=== PATIENT | female | born 1955 | race African-American/Black ===

== ENCOUNTER 2024-02-14 07:01 | Inpatient (IN) | payer MEDICARE ==
[2024-02-14] MEDS ORDERED: Pantoprazole 40 MG VIAL ONE (07:23)
[2024-02-14 07:35] LABS: #Basophils Less than 0.03 10x3/uL (0.0-0.2); %Basophils 0.1 % (0.0-1.0); %Eosinophils 0.7 % (0.0-10.0); %Lymphocytes 35.3 % (21.0-51.0); %Monocytes 7.2 % (0.0-10.0); %Neutrophils 56.3 % (42.0-75.0); Hematocrit 28.6 % (36.0-47.0); Hemoglobin 8.5 g/dL (12.0-16.0); Mean Corpuscular HGB CONC 29.7 g/dL (32.0-36.0); Mean Corpuscular Hemoglobin 28.4 pg (27.0-31.0); Mean Corpuscular Volume 95.7 fL (78.0-98.0); Mean Platelet Volume 9.1 fL (7.4-10.4); Platelet Count 302 10x3/uL (130-400); RBC Distribution Width 15.3 % (11.5-14.5); Red Blood Cell (RBC) Count 2.99 mill/uL (4.20-5.40)
[2024-02-14 07:57] LABS: INR-International Normal Ratio 1.2; PTT 28.8 sec (22.9-36.1)
[2024-02-14 07:58] LABS: ALT (SGPT) 5 U/L (8-55); AST (SGOT) 19 U/L (5-34); Albumin 2.2 g/dL (3.4-4.8); Alkaline Phosphatase 120 U/L (40-110); Anion Gap 14 mmol/L (10-20); BUN (Urea Nitrogen) 9 mg/dL (9.8-20.1); Bilirubin, Total 0.4 mg/dL (0.2-1.2); Calc. Creatinine Clearance 0 mL/min (70-130); Calcium 8.9 mg/dL (7.8-10.44); Carbon Dioxide 18 mmol/L (23-31); Chloride 107 mmol/L (98-107); Estimated GFR 51; Globulin 4.2 g/dL (2.4-3.5); Glucose 189 mg/dL (80-115); Potassium 2.9 mmol/L (3.5-5.1); Protein, Total 6.4 g/dL (5.8-8.1); Sodium 136 mmol/L (136-145)
[2024-02-14] MEDS ORDERED: Potassium Chloride 20 MEQ (100 mL) BAG ONE (08:09)
[2024-02-14] MEDS ORDERED: NS 0.9% w/ 20 MEQ KCL 0 ML ONE (08:15)
[2024-02-14] MEDS ORDERED: Senokot S 8.6-50 MG TAB PO PRN (09:09)
[2024-02-14] MEDS ORDERED: Guaifenesin DM 100-10/5 ML UDCUP PO PRN (09:09)
[2024-02-14] MEDS ORDERED: Iopamidol-370 76% 500 ML MDV (1 ML CHARGE) ONE (09:12)
[2024-02-14 11:04] LABS: Lactic Acid 2.16 mmol/L (0.5-2.2)
[2024-02-14] MEDS ORDERED: SUCCINYLCHOLINE/SOD CL,ISO/PF 200 MG/10 ML SYRINGE FS ONE (11:16)
[2024-02-14] MEDS ORDERED: PROPOFOL 200 MG/20 ML VIAL ONE (11:16)
[2024-02-14] MEDS ORDERED: Ondansetron PF 4 MG/2 ML Vial ONE (11:16)
[2024-02-14] MEDS ORDERED: Dexamethasone 20 MG/5 ML VIAL ONE (11:16)
[2024-02-14] MEDS ORDERED: Promethazine HCl 25 MG/ML VIAL ONE (12:27)
[2024-02-14] MEDS ORDERED: Non-Formulary Medication 1 EACH PO PRN (12:47)
[2024-02-14] MEDS ORDERED: Ondansetron HCl/PF 4 MG/2 ML Vial IVP PRN (13:00)
[2024-02-14] MEDS ORDERED: Promethazine HCl 25 MG/ML VIAL IM PRN (13:00)
[2024-02-14] MEDS: Pantoprazole 80 MG, Admixture Fee 1 EACH in Sodium Chloride 0.9% 100 ML IVPB SCH ×2 (13:50→13:51)
[2024-02-14] MEDS ORDERED: Electrolyte Replacement Protocol FS PRN (14:30)
[2024-02-14] MEDS: Octreotide Acetate 1,250 MCG in Sodium Chloride 0.9% 250 ML 250 ML IVPB SCH (14:33)
[2024-02-14] MEDS: Potassium Chloride 20 MEQ in Premix 1 BAG IVPB SCH (15:30)
[2024-02-14] MEDS: Sodium Chloride 0.9% 1,000 ML IV SCH (17:18)
[2024-02-14] MEDS: Electrolyte Replacement Protocol 1 EACH FS ONE (18:07)
[2024-02-14] MEDS: Pantoprazole 40 MG VIAL IVP SCH (21:19)
[2024-02-15 02:07] LABS: #Basophils Less than 0.03 10x3/uL (0.0-0.2); #Eosinophils Less than 0.03 10x3/uL (0.0-0.7); %Basophils 0.2 % (0.0-1.0); %Lymphocytes 9.7 % (21.0-51.0); %Monocytes 2.1 % (0.0-10.0); %Neutrophils 87.7 % (42.0-75.0); Hematocrit 27.9 % (36.0-47.0); Hemoglobin 8.4 g/dL (12.0-16.0); Mean Corpuscular HGB CONC 30.1 g/dL (32.0-36.0); Mean Corpuscular Hemoglobin 28.4 pg (27.0-31.0); Mean Corpuscular Volume 94.3 fL (78.0-98.0); Mean Platelet Volume 9.2 fL (7.4-10.4); Platelet Count 241 10x3/uL (130-400); RBC Distribution Width 15.3 % (11.5-14.5); Red Blood Cell (RBC) Count 2.96 mill/uL (4.20-5.40)
[2024-02-15 02:31] LABS: Potassium 6.4 mmol/L (3.5-5.1)
[2024-02-15 03:14] LABS: ALT (SGPT) 5 U/L (8-55); AST (SGOT) 14 U/L (5-34); Albumin 2.1 g/dL (3.4-4.8); Alkaline Phosphatase 112 U/L (40-110); Anion Gap 14 mmol/L (10-20); BUN (Urea Nitrogen) 11 mg/dL (9.8-20.1); Bilirubin, Total 0.3 mg/dL (0.2-1.2); Calc. Creatinine Clearance 67 mL/min (70-130); Calcium 8.4 mg/dL (7.8-10.44); Carbon Dioxide 14 mmol/L (23-31); Chloride 117 mmol/L (98-107); Estimated GFR 55; Globulin 4.2 g/dL (2.4-3.5); Glucose 170 mg/dL (80-115); Potassium 6.4 mmol/L (3.5-5.1); Protein, Total 6.3 g/dL (5.8-8.1); Sodium 139 mmol/L (136-145)
[2024-02-15] MEDS: Sodium Bicarb 50 MEQ/50 ML Abboject 8.4% SYRINGE IVP SCH (03:33)
[2024-02-15] MEDS: Insulin Regular, Human 100 UNIT/ML 10 ML VIAL IVP SCH (03:33)
[2024-02-15] MEDS: Dextrose 50% Abboject 50 ML SYRINGE SLOW IVP PRN (03:33)
[2024-02-15 05:40] LABS: Potassium 5.4 mmol/L (3.5-5.1)
[2024-02-15] MEDS: cefTRIAXone\\ROCEPHIN 1 GM in Sodium Chloride 0.9% 100 ML IVPB SCH (09:18)
[2024-02-15 09:56] LABS: Potassium 5.5 mmol/L (3.5-5.1)
[2024-02-15] MEDS: LOKELMA 10 GM PACKET PO SCH ×2 (11:30→17:50)
[2024-02-15] MEDS ORDERED: fentaNYL 50 mcg/mL 1 mL Vial ONE (12:06)
[2024-02-15] MEDS ORDERED: GLYCOPYRROLATE/PF 0.2 MG/ML VIAL ONE (12:06)
[2024-02-15] MEDS ORDERED: PHENYLEPHRINE-NS 100 MCG/ML 10 ML SYRINGE ONE (12:06)
[2024-02-15 12:30] VITALS: BMI 33.7
[2024-02-15] MEDS ORDERED: Lidocaine 1% PF 5 ML VIAL ONE (12:30)
[2024-02-15] MEDS ORDERED: Labetalol HCl 100 MG/20 ML VIAL ONE (12:36)
[2024-02-15] MEDS: Sodium Chloride 0.45% 1,000 ML IV SCH (15:00)
[2024-02-16 05:02] LABS: Hematocrit 22.5 % (36.0-47.0); Hemoglobin 6.6 g/dL (12.0-16.0)
[2024-02-16 05:44] LABS: Anion Gap 12 mmol/L (10-20); BUN (Urea Nitrogen) 10 mg/dL (9.8-20.1); Calc. Creatinine Clearance 78 mL/min (70-130); Calcium 8.1 mg/dL (7.8-10.44); Carbon Dioxide 18 mmol/L (23-31); Chloride 114 mmol/L (98-107); Estimated GFR 63; Glucose 125 mg/dL (80-115); Potassium 4.4 mmol/L (3.5-5.1); Sodium 140 mmol/L (136-145)
[2024-02-16 08:41] LABS: Hematocrit 23.9 % (36.0-47.0); Hemoglobin 7.1 g/dL (12.0-16.0)
[2024-02-16] MEDS: Pantoprazole DR 40 MG TAB PO SCH (09:29)
[2024-02-16 13:31] LABS: Hematocrit 26.8 % (36.0-47.0); Hemoglobin 8.2 g/dL (12.0-16.0); Platelet Count 200 10x3/uL (130-400)
[2024-02-16 20:20] LABS: Hemoglobin 8.7 g/dL (12.0-16.0); Platelet Count 238 10x3/uL (130-400)
[2024-02-17 05:49] LABS: Hematocrit 26.8 % (36.0-47.0); Hemoglobin 8.6 g/dL (12.0-16.0); Platelet Count 202 10x3/uL (130-400)
[2024-02-17 14:39] LABS: Hematocrit 28.2 % (36.0-47.0)
[2024-02-17] MEDS ORDERED: Iopamidol-370 76% 500 ML MDV (1 ML CHARGE) ONE (15:46)
[2024-02-17 15:51] LABS: ALT (SGPT) 7 U/L (8-55); AST (SGOT) 20 U/L (5-34); Albumin 2.2 g/dL (3.4-4.8); Alkaline Phosphatase 108 U/L (40-110); Anion Gap 13 mmol/L (10-20); BUN (Urea Nitrogen) 10 mg/dL (9.8-20.1); Bilirubin, Total 0.4 mg/dL (0.2-1.2); Calc. Creatinine Clearance 90 mL/min (70-130); Calcium 8.7 mg/dL (7.8-10.44); Carbon Dioxide 24 mmol/L (23-31); Chloride 107 mmol/L (98-107); Estimated GFR 73; Glucose 109 mg/dL (80-115); Magnesium 1.5 mg/dL (1.6-2.6); Potassium 3.2 mmol/L (3.5-5.1); Protein, Total 6.2 g/dL (5.8-8.1); Sodium 141 mmol/L (136-145)
[2024-02-17] MEDS: Carvedilol 25 MG TAB PO SCH (18:13)
[2024-02-17] MEDS: Acetaminophen 325 MG TAB PO PRN (18:13)
[2024-02-17] MEDS: Magnesium Sulfate In Water 4 GM in Premix 1 BAG IVPB SCH (18:13)
[2024-02-17] MEDS: Potassium Chloride 20 MEQ TAB PO SCH (18:13)
[2024-02-17] MEDS: Ondansetron PF 4 MG/2 ML Vial IVP PRN (18:19)
[2024-02-17 19:51] LABS: #Basophils Less than 0.03 10x3/uL (0.0-0.2); #Eosinophils Less than 0.03 10x3/uL (0.0-0.7); %Basophils 0.1 % (0.0-1.0); %Lymphocytes 8.1 % (21.0-51.0); %Monocytes 4.9 % (0.0-10.0); %Neutrophils 86.6 % (42.0-75.0); Hematocrit 27.2 % (36.0-47.0); Hemoglobin 8.7 g/dL (12.0-16.0); Mean Corpuscular Hemoglobin 28.6 pg (27.0-31.0); Mean Corpuscular Volume 89.5 fL (78.0-98.0); Mean Platelet Volume 9.3 fL (7.4-10.4); Platelet Count 206 10x3/uL (130-400); Red Blood Cell (RBC) Count 3.04 mill/uL (4.20-5.40)
[2024-02-17] MEDS: metroNIDAZOLE 500 MG in Premix 1 BAG IVPB SCH (20:44)
[2024-02-17 20:52] LABS: Bacteria/HPF None Seen HPF (None Seen); Bilirubin Negative (Negative); Blood, Urine Negative (Negative); CAUTI Indications for Culture Fever or rigors; Clarity Clear (Clear); Glucose, Urine (Dipstick) Normal (Negative); Ketone, Urine Negative (Negative); Leukocyte Negative Leu/uL (Negative); Nitrite Negative (Negative); Protein, Urine (Dipstick) Negative (Neg-Trace); RBC/HPF 0-3 HPF (0-3); Specific Gravity, Urine 1.004 (1.002-1.036); Squamous Epithelial 0-3 HPF (0-3); Urobilinogen Normal mg/dL (Less than 2); WBC/HPF 0-3 HPF (0-3)
[2024-02-17 20:54] LABS: Urine Culture Reflex No No
[2024-02-17] MEDS ORDERED: Carvedilol 25 MG TAB PO SCH (21:00)
[2024-02-17] MEDS ORDERED: hydrALAZINE 25 MG TAB PO SCH (21:00)
[2024-02-17] MEDS: Acetaminophen 325 MG TAB PO SCH (21:23)
[2024-02-17] MEDS: Cefepime 1 GM in Sodium Chloride 0.9% 100 ML IVPB SCH (22:44)
[2024-02-17] MEDS: Vancomycin (BATCH) 2 GM in Premix 1 BAG IVPB SCH (23:41)
[2024-02-18 05:23] LABS: #Basophils Less than 0.03 10x3/uL (0.0-0.2); #Eosinophils Less than 0.03 10x3/uL (0.0-0.7); %Basophils 0.1 % (0.0-1.0); %Eosinophils 0.1 % (0.0-10.0); %Lymphocytes 9.3 % (21.0-51.0); %Monocytes 5.2 % (0.0-10.0); %Neutrophils 84.7 % (42.0-75.0); Hematocrit 27.7 % (36.0-47.0); Hemoglobin 8.7 g/dL (12.0-16.0); Mean Corpuscular HGB CONC 31.4 g/dL (32.0-36.0); Mean Corpuscular Volume 92.3 fL (78.0-98.0); Mean Platelet Volume 9.4 fL (7.4-10.4); Platelet Count 190 10x3/uL (130-400); RBC Distribution Width 16.1 % (11.5-14.5)
[2024-02-18 05:36] LABS: Anion Gap 12 mmol/L (10-20); BUN (Urea Nitrogen) 10 mg/dL (9.8-20.1); Calc. Creatinine Clearance 89 mL/min (70-130); Calcium 8.3 mg/dL (7.8-10.44); Carbon Dioxide 21 mmol/L (23-31); Chloride 107 mmol/L (98-107); Estimated GFR 72; Glucose 105 mg/dL (80-115); Magnesium 2.5 mg/dL (1.6-2.6); Potassium 3.2 mmol/L (3.5-5.1); Sodium 137 mmol/L (136-145)
[2024-02-18] MEDS: Rosuvastatin 20 MG TAB PO SCH (08:55)
[2024-02-18] MEDS: Cefepime 1 GM in Sodium Chloride 0.9% 100 ML IVPB SCH (08:56)
[2024-02-18] MEDS: Vancomycin HCl 750 MG in Sodium Chloride 0.9% 250 ML 250 ML IVPB SCH (08:56)
[2024-02-18] MEDS: Potassium Chloride 20 MEQ TAB PO SCH (08:57)
[2024-02-18] MEDS ORDERED: Non-Formulary Item 1 EACH (Losartan/Hydrochlorothiazide [Losartan-Hctz 100-25 Mg Tab] 1 E PO SCH (09:00)
[2024-02-18] MEDS ORDERED: Losartan 25 MG TAB PO SCH (09:00)
[2024-02-18] MEDS ORDERED: Hydrochlorothiazide 25 MG TAB PO SCH (09:00)
[2024-02-18] MEDS ORDERED: Amlodipine 10 MG TAB PO SCH (09:00)
[2024-02-18] MEDS: Potassium Chloride 20 MEQ in Premix 1 BAG IVPB SCH (10:06)
[2024-02-18] MEDS: Sodium Chloride 0.9% 1,000 ML IV SCH ×2 (17:10→20:22)
[2024-02-18 17:54] LABS: Hematocrit 26.4 % (36.0-47.0); Hemoglobin 8.1 g/dL (12.0-16.0); Mean Corpuscular HGB CONC 30.7 g/dL (32.0-36.0); Mean Corpuscular Hemoglobin 28.6 pg (27.0-31.0); Mean Corpuscular Volume 93.3 fL (78.0-98.0); Mean Platelet Volume 9.7 fL (7.4-10.4); Platelet Count 226 10x3/uL (130-400); RBC Distribution Width 16.1 % (11.5-14.5); Red Blood Cell (RBC) Count 2.83 mill/uL (4.20-5.40)
[2024-02-18 18:09] LABS: ALT (SGPT) 7 U/L (8-55); AST (SGOT) 17 U/L (5-34); Albumin 2.1 g/dL (3.4-4.8); Alkaline Phosphatase 108 U/L (40-110); Anion Gap 15 mmol/L (10-20); BUN (Urea Nitrogen) 12 mg/dL (9.8-20.1); Bilirubin, Total 0.6 mg/dL (0.2-1.2); Calc. Creatinine Clearance 77 mL/min (70-130); Calcium 8.3 mg/dL (7.8-10.44); Carbon Dioxide 18 mmol/L (23-31); Chloride 109 mmol/L (98-107); Estimated GFR 61; Glucose 109 mg/dL (80-115); Magnesium 2.3 mg/dL (1.6-2.6); Potassium 3.4 mmol/L (3.5-5.1); Protein, Total 6.1 g/dL (5.8-8.1); Sodium 139 mmol/L (136-145)
[2024-02-18 18:10] LABS: INR-International Normal Ratio 1.2; Prothrombin Time 15.7 sec (12.0-14.7)
[2024-02-18 18:34] LABS: Actual Bicarbonate (HCO3v) 21.9 mEq/L (22-28); Base Excess -3.2 mEq/L (-2.0 to +3.0); Calcium, Ionized (venous) 1.15 mmol/L (1.16-1.32); Chloride (VBG) 107 mmol/L (98-106); Hematocrit-VBG 27 % (36.0-47.0); Hemoglobin (Hb) 9.3 g/dL (11.7-16.1); Potassium (VBG) 3.39 mmol/L (3.70-5.30); Sodium 138 mmol/L (133-146); pH (venous) 7.363 (7.32-7.43)
[2024-02-18] MEDS ORDERED: Vancomycin (BATCH) 1.25 GM in Premix 1 BAG IVPB SCH (20:00)
[2024-02-18] MEDS ORDERED: Potassium Chloride 20 MEQ in Premix 1 BAG IVPB SCH (20:00)
[2024-02-18] MEDS: Cefepime 2 GM in Sodium Chloride 0.9% 100 ML IVPB SCH (20:21)
[2024-02-18] MEDS: Potassium Chloride 10 MEQ in Premix 1 BAG IVPB SCH (20:35)
[2024-02-18] MEDS: VANCOMYCIN 1.25 GM/250 ML BAG 1.25 GM in Premix 1 BAG IVPB SCH (21:03)
[2024-02-19 04:14] LABS: #Basophils Less than 0.03 10x3/uL (0.0-0.2); %Basophils 0.1 % (0.0-1.0); %Eosinophils 0.7 % (0.0-10.0); %Lymphocytes 11.3 % (21.0-51.0); %Monocytes 6.1 % (0.0-10.0); %Neutrophils 81.5 % (42.0-75.0); Hematocrit 23.3 % (36.0-47.0); Mean Corpuscular Hemoglobin 28.1 pg (27.0-31.0); Mean Corpuscular Volume 93.6 fL (78.0-98.0); Mean Platelet Volume 9.6 fL (7.4-10.4); Platelet Count 175 10x3/uL (130-400); RBC Distribution Width 16.1 % (11.5-14.5); Red Blood Cell (RBC) Count 2.49 mill/uL (4.20-5.40)
[2024-02-19 04:43] LABS: Anion Gap 12 mmol/L (10-20); BUN (Urea Nitrogen) 11 mg/dL (9.8-20.1); Calc. Creatinine Clearance 92 mL/min (70-130); Calcium 7.6 mg/dL (7.8-10.44); Carbon Dioxide 17 mmol/L (23-31); Chloride 113 mmol/L (98-107); Estimated GFR 75; Glucose 74 mg/dL (80-115); Magnesium 2.1 mg/dL (1.6-2.6); Potassium 3.9 mmol/L (3.5-5.1); Sodium 138 mmol/L (136-145)
[2024-02-19 04:46] LABS: Vancomycin, Random 32.2 ug/mL (See Comment)
[2024-02-19] MEDS: Rosuvastatin 20 MG TAB PO SCH (20:41)
[2024-02-20 05:51] LABS: #Basophils Less than 0.03 10x3/uL (0.0-0.2); %Basophils 0.3 % (0.0-1.0); %Eosinophils 1.8 % (0.0-10.0); %Lymphocytes 15.2 % (21.0-51.0); %Monocytes 8.7 % (0.0-10.0); %Neutrophils 73.5 % (42.0-75.0); Hematocrit 25.3 % (36.0-47.0); Hemoglobin 8.3 g/dL (12.0-16.0); Mean Corpuscular HGB CONC 32.8 g/dL (32.0-36.0); Mean Corpuscular Hemoglobin 29.1 pg (27.0-31.0); Mean Corpuscular Volume 88.8 fL (78.0-98.0); Mean Platelet Volume 9.8 fL (7.4-10.4); Platelet Count 186 10x3/uL (130-400); RBC Distribution Width 15.9 % (11.5-14.5); Red Blood Cell (RBC) Count 2.85 mill/uL (4.20-5.40)
[2024-02-20 06:24] LABS: Anion Gap 10 mmol/L (10-20); BUN (Urea Nitrogen) 8 mg/dL (9.8-20.1); Calc. Creatinine Clearance 103 mL/min (70-130); Calcium 7.8 mg/dL (7.8-10.44); Carbon Dioxide 17 mmol/L (23-31); Chloride 113 mmol/L (98-107); Estimated GFR 90; Glucose 68 mg/dL (80-115); Magnesium 1.9 mg/dL (1.6-2.6); Potassium 3.6 mmol/L (3.5-5.1); Sodium 136 mmol/L (136-145)
[2024-02-20] MEDS: Magnesium 2 GM/50 ML(in water) 2 GM in Premix 1 BAG IVPB SCH (09:13)
[2024-02-21 06:40] LABS: #Basophils Less than 0.03 10x3/uL (0.0-0.2); %Basophils 0.2 % (0.0-1.0); %Eosinophils 1.1 % (0.0-10.0); %Lymphocytes 14.1 % (21.0-51.0); %Monocytes 10.1 % (0.0-10.0); %Neutrophils 74.2 % (42.0-75.0); Hematocrit 26.3 % (36.0-47.0); Hemoglobin 8.5 g/dL (12.0-16.0); Mean Corpuscular HGB CONC 32.3 g/dL (32.0-36.0); Mean Corpuscular Hemoglobin 28.4 pg (27.0-31.0); Mean Platelet Volume 9.7 fL (7.4-10.4); Platelet Count 220 10x3/uL (130-400); RBC Distribution Width 15.9 % (11.5-14.5); Red Blood Cell (RBC) Count 2.99 mill/uL (4.20-5.40)
[2024-02-21 06:52] LABS: Anion Gap 11 mmol/L (10-20); BUN (Urea Nitrogen) 6 mg/dL (9.8-20.1); Calc. Creatinine Clearance 108 mL/min (70-130); Calcium 8.3 mg/dL (7.8-10.44); Carbon Dioxide 18 mmol/L (23-31); Chloride 112 mmol/L (98-107); Estimated GFR 90; Glucose 69 mg/dL (80-115); Magnesium 2.1 mg/dL (1.6-2.6); Potassium 3.6 mmol/L (3.5-5.1); Sodium 137 mmol/L (136-145)
[2024-02-21 11:55] VITALS: TEMP 98.6
[2024-02-21 12:25] VITALS: BP 113/74
== END 2024-02-21 17:08 | disposition home or self-care (01) | DRG 378 ==
LOC: ERS 07:01 → SDC 10:31 → CCU 14:02 → MSONC 14:23 → CCU 14:27 → T4-B 02-16 12:15 → IMCU/EMU 02-18 18:26
PROVIDERS: ADMIT Hospitalist; ATTEND Family Medicine
PROC: 0DJ08ZZ Inspection of Upper Intestinal Tract, Via Natural or Artificial Opening Endoscopic (ICD-10-PCS; 2024-02-14)
PROC: 0DJ08ZZ Inspection of Upper Intestinal Tract, Via Natural or Artificial Opening Endoscopic (ICD-10-PCS; 2024-02-15)
PROC: 30233N1 Transfusion of Nonautologous Red Blood Cells into Peripheral Vein, Percutaneous Approach (ICD-10-PCS; principal; 2024-02-19)
DX: K31.82 Dieulafoy lesion (hemorrhagic) of stomach and duodenum (principal); D62 Acute posthemorrhagic anemia; N17.9 Acute kidney failure, unspecified; E87.20 Acidosis, unspecified; E87.6 Hypokalemia; I25.10 Atherosclerotic heart disease of native coronary artery without angina pectoris; E78.5 Hyperlipidemia, unspecified; I10 Essential (primary) hypertension; M10.9 Gout, unspecified; K44.9 Diaphragmatic hernia without obstruction or gangrene; E83.42 Hypomagnesemia; I95.1 Orthostatic hypotension; Z79.899 Other long term (current) drug therapy; Z95.1 Presence of aortocoronary bypass graft; Z86.718 Personal history of other venous thrombosis and embolism; Z79.01 Long term (current) use of anticoagulants; Z88.0 Allergy status to penicillin; Z79.02 Long term (current) use of antithrombotics/antiplatelets; Z87.891 Personal history of nicotine dependence
CPT/HCPCS: 36415; 36416; 36430; 71045; 71250; 71275; 72191; 74018; 74174; 80048; 80053; 80202; 81001; 82533; 82805; 83605; 83735; 85014; 85018; 85025; 85049; 85610; 85730; 86850; 86900; 86901; 87040; 87077; 87149; 93005; 93010; 93306; 96374; 96375; J0692; J0696; J1100; J1815; J2250; J2354; J2405; J2470; J2550; J2704; J3010; J3370; J3475; J3480; J3490; J7030; J7050; J7999; P9016; Q9967

== ENCOUNTER 2024-03-14 18:17 | Inpatient (IN) | payer MEDICARE ==
[2024-03-14 22:00] LABS: #Basophils Less than 0.03 10x3/uL (0.0-0.2); #Eosinophils Less than 0.03 10x3/uL (0.0-0.7); %Basophils 0.1 % (0.0-1.0); %Lymphocytes 7.6 % (21.0-51.0); %Monocytes 5.8 % (0.0-10.0); %Neutrophils 86.1 % (42.0-75.0); Hematocrit 23.6 % (36.0-47.0); Hemoglobin 7.5 g/dL (12.0-16.0); Mean Corpuscular HGB CONC 31.8 g/dL (32.0-36.0); Mean Corpuscular Hemoglobin 28.5 pg (27.0-31.0); Mean Corpuscular Volume 89.7 fL (78.0-98.0); Mean Platelet Volume 9.2 fL (7.4-10.4); Platelet Count 262 10x3/uL (130-400); RBC Distribution Width 15.2 % (11.5-14.5); Red Blood Cell (RBC) Count 2.63 mill/uL (4.20-5.40)
[2024-03-14 22:12] LABS: INR-International Normal Ratio 1.2; Prothrombin Time 14.8 sec (12.0-14.7)
[2024-03-14 22:25] LABS: ALT (SGPT) 6 U/L (8-55); AST (SGOT) 16 U/L (5-34); Albumin 2.1 g/dL (3.4-4.8); Alkaline Phosphatase 90 U/L (40-110); Anion Gap 16 mmol/L (10-20); BUN (Urea Nitrogen) 15 mg/dL (9.8-20.1); Bilirubin, Total 0.7 mg/dL (0.2-1.2); Calc. Creatinine Clearance 0 mL/min (70-130); Calcium 9.6 mg/dL (7.8-10.44); Carbon Dioxide 22 mmol/L (23-31); Chloride 104 mmol/L (98-107); Estimated GFR 60; Globulin 5.3 g/dL (2.4-3.5); Glucose 108 mg/dL (83-110); Potassium 3.5 mmol/L (3.5-5.1); Protein, Total 7.4 g/dL (5.8-8.1); Sodium 138 mmol/L (136-145)
[2024-03-14 23:06] LABS: #Basophils Less than 0.03 10x3/uL (0.0-0.2); #Eosinophils Less than 0.03 10x3/uL (0.0-0.7); %Basophils 0.1 % (0.0-1.0); %Lymphocytes 10.3 % (21.0-51.0); %Monocytes 6.8 % (0.0-10.0); %Neutrophils 82.3 % (42.0-75.0); Hematocrit 24.3 % (36.0-47.0); Hemoglobin 7.6 g/dL (12.0-16.0); Mean Corpuscular HGB CONC 31.3 g/dL (32.0-36.0); Mean Corpuscular Hemoglobin 28.5 pg (27.0-31.0); Mean Platelet Volume 9.2 fL (7.4-10.4); Platelet Count 241 10x3/uL (130-400); RBC Distribution Width 15.4 % (11.5-14.5); Red Blood Cell (RBC) Count 2.67 mill/uL (4.20-5.40)
[2024-03-14] MEDS ORDERED: Piperacillin/Tazobactam 4.5 GM VIAL ONE (23:24)
[2024-03-14] MEDS ORDERED: Sodium Chloride 0.9% 100 ML ONE (23:24)
[2024-03-14] MEDS ORDERED: Ondansetron PF 4 MG/2 ML Vial ONE (23:24)
[2024-03-14] MEDS ORDERED: Ketorolac Tromethamine 30 MG (1 mL) VIAL ONE (23:46)
[2024-03-15 03:50] LABS: #Basophils Less than 0.03 10x3/uL (0.0-0.2); #Eosinophils Less than 0.03 10x3/uL (0.0-0.7); %Basophils 0.1 % (0.0-1.0); %Lymphocytes 9.1 % (21.0-51.0); %Monocytes 7.2 % (0.0-10.0); %Neutrophils 83.2 % (42.0-75.0); Hematocrit 22.4 % (36.0-47.0); Hemoglobin 6.9 g/dL (12.0-16.0); Mean Corpuscular HGB CONC 30.8 g/dL (32.0-36.0); Mean Corpuscular Hemoglobin 28.6 pg (27.0-31.0); Mean Corpuscular Volume 92.9 fL (78.0-98.0); Mean Platelet Volume 9.4 fL (7.4-10.4); Platelet Count 237 10x3/uL (130-400); RBC Distribution Width 15.6 % (11.5-14.5); Red Blood Cell (RBC) Count 2.41 mill/uL (4.20-5.40)
[2024-03-15 04:56] LABS: Anion Gap 14 mmol/L (10-20); BUN (Urea Nitrogen) 15 mg/dL (9.8-20.1); Calc. Creatinine Clearance 0 mL/min (70-130); Carbon Dioxide 20 mmol/L (23-31); Chloride 107 mmol/L (98-107); Estimated GFR 61; Glucose 111 mg/dL (83-110); Potassium 3.2 mmol/L (3.5-5.1); Sodium 138 mmol/L (136-145)
[2024-03-15 04:59] LABS: INR-International Normal Ratio 1.2
[2024-03-15 05:00] LABS: PTT 36.1 sec (22.9-36.1)
[2024-03-15] MEDS ORDERED: Senokot 8.6 MG TAB PO PRN (05:45)
[2024-03-15] MEDS ORDERED: HYDROcodone/Acetaminophen 10/325 mg Tablet PO PRN (05:45)
[2024-03-15] MEDS ORDERED: Acetaminophen 650 MG Suppository PR PRN (05:45)
[2024-03-15 07:28] VITALS: BMI 31.5
[2024-03-15] MEDS: Vancomycin (BATCH) 2 GM in Premix 1 BAG IVPB SCH (08:56)
[2024-03-15] MEDS ORDERED: Enoxaparin 80 MG (0.8 mL) SYRINGE SC SCH ×2 (09:00→21:00)
[2024-03-15] MEDS ORDERED: Senokot S 8.6-50 MG TAB PO SCH (09:00)
[2024-03-15 10:19] LABS: #Basophils Less than 0.03 10x3/uL (0.0-0.2); %Basophils 0.2 % (0.0-1.0); %Eosinophils 0.3 % (0.0-10.0); %Lymphocytes 7.9 % (21.0-51.0); %Monocytes 6.9 % (0.0-10.0); %Neutrophils 84.2 % (42.0-75.0); Hematocrit 23.9 % (36.0-47.0); Hemoglobin 7.5 g/dL (12.0-16.0); Mean Corpuscular HGB CONC 31.4 g/dL (32.0-36.0); Mean Corpuscular Hemoglobin 28.6 pg (27.0-31.0); Mean Corpuscular Volume 91.2 fL (78.0-98.0); Mean Platelet Volume 9.5 fL (7.4-10.4); Platelet Count 242 10x3/uL (130-400); RBC Distribution Width 15.6 % (11.5-14.5); Red Blood Cell (RBC) Count 2.62 mill/uL (4.20-5.40)
[2024-03-15] MEDS: Sodium Chloride 0.9% 1,000 ML IV SCH (10:30)
[2024-03-15] MEDS: Enoxaparin 100 MG (1 mL) SYRINGE SC SCH (10:30)
[2024-03-15] MEDS: Piperacillin/Tazobactam 3.375 GM in Sodium Chloride 0.9% 100 ML IVPB SCH ×2 (10:31)
[2024-03-15] MEDS: Pantoprazole DR 40 MG TAB PO SCH (10:31)
[2024-03-15 10:37] LABS: Anion Gap 15 mmol/L (10-20); BUN (Urea Nitrogen) 18 mg/dL (9.8-20.1); Calc. Creatinine Clearance 61 mL/min (70-130); Calcium 9.4 mg/dL (7.8-10.44); Carbon Dioxide 22 mmol/L (23-31); Chloride 108 mmol/L (98-107); Estimated GFR 53; Glucose 99 mg/dL (83-110); Potassium 3.3 mmol/L (3.5-5.1); Sodium 142 mmol/L (136-145)
[2024-03-15] MEDS: Potassium Chloride 20 MEQ TAB PO SCH (11:33)
[2024-03-15] MEDS: FLU (Fluad Triv) TS24-25 (65UP)/MF59C/PF 45 MCG/0.5 ML Syringe IM ONE (14:03)
[2024-03-15] MEDS: Acetaminophen 325 MG TAB PO PRN (17:23)
[2024-03-15] MEDS: Ondansetron PF 4 MG/2 ML Vial SLOW IVP PRN (17:45)
[2024-03-15] MEDS: HYDROcodone/Acetaminophen 10/325 mg Tablet PO PRN (20:14)
[2024-03-15] MEDS: Rosuvastatin 20 MG TAB PO SCH (20:14)
[2024-03-15] MEDS: Enoxaparin 80 MG (0.8 mL) SYRINGE SC SCH (20:15)
[2024-03-15] MEDS: Vancomycin (BATCH) 1.5 GM in Premix 1 BAG IVPB SCH (20:18)
[2024-03-15 20:25] VITALS: BP 117/74; TEMP 101.2
== END 2024-03-15 20:35 | disposition short-term general hospital (02) | DRG 301 ==
LOC: ERS 18:17 → ERHOLD 03-15 00:53 → T4-A 03-15 06:26
PROVIDERS: ADMIT Student in an Organized Health Care Education/Training Program; ATTEND Student in an Organized Health Care Education/Training Program
DX: I82.411 Acute embolism and thrombosis of right femoral vein (principal); I77.6 Arteritis, unspecified; I82.441 Acute embolism and thrombosis of right tibial vein; I25.10 Atherosclerotic heart disease of native coronary artery without angina pectoris; E78.00 Pure hypercholesterolemia, unspecified; D64.9 Anemia, unspecified; I10 Essential (primary) hypertension; Z87.891 Personal history of nicotine dependence; Z95.1 Presence of aortocoronary bypass graft; Z88.0 Allergy status to penicillin
CPT/HCPCS: 36415; 71045; 74177; 80048; 80053; 82274; 83605; 85025; 85610; 85730; 86850; 86900; 86901; 87040; 87076; 93005; 94760; J1650; J1885; J2405; J2543; J3370